=== PATIENT | female | born 2000 | race Hispanic/Latino ===

== ENCOUNTER 2023-03-21 14:50 | Outpatient (CLI) | payer OTHER | END 2023-03-21 14:51 | disposition home or self-care (01) | LOC: BICRAD 14:50 | PROVIDERS: ATTEND Student in an Organized Health Care Education/Training Program | DX: S69.91XA Unspecified injury of right wrist, hand and finger(s), initial encounter (principal) ==

== ENCOUNTER 2024-02-07 00:09 | Emergency (ER) | payer OTHER ==
[2024-02-07] MEDS ORDERED: Ibuprofen 800 MG TAB ONE (01:28)
[2024-02-07] MEDS ORDERED: Acetaminophen 500 MG TAB ONE (01:41)
== END 2024-02-07 01:48 | disposition home or self-care (01) ==
LOC: ERS 00:09
DX: T63.301A Toxic effect of unspecified spider venom, accidental (unintentional), initial encounter (principal)
CPT/HCPCS: 99282

== ENCOUNTER 2024-02-22 08:47 | Emergency (ER) | payer OTHER ==
[2024-02-22] MEDS ORDERED: Ketorolac Tromethamine 30 MG (1 mL) VIAL ONE (09:21)
[2024-02-22] MEDS ORDERED: Cyclobenzaprine 10 MG TAB ONE (09:22)
== END 2024-02-22 09:36 | disposition home or self-care (01) ==
LOC: ERS 08:47
DX: S39.012A Strain of muscle, fascia and tendon of lower back, initial encounter (principal); V49.60XA Unspecified car occupant injured in collision with unspecified motor vehicles in traffic accident, initial encounter
CPT/HCPCS: 96372; 99283; J1885

== ENCOUNTER 2024-05-02 08:41 | Emergency (ER) | payer OTHER ==
[2024-05-02] MEDS ORDERED: Dexamethasone 4 MG TAB ONE (09:25)
[2024-05-02 10:32] LABS: BHCG - Serum Negative (NEGATIVE); Pregs Control Background? CLEAR/WHITE (CLR/WHITE); Pregs Control Bar Appear? YES (CONTROL BAR)
== END 2024-05-02 10:38 | disposition home or self-care (01) ==
LOC: ERS 08:41
DX: K04.7 Periapical abscess without sinus (principal)
CPT/HCPCS: 36415; 84703; 99282; J8540

== ENCOUNTER 2024-05-19 07:55 | Emergency (ER) | payer OTHER ==
[2024-05-19] MEDS ORDERED: Dexamethasone 10 MG/ML VIAL ONE (08:25)
== END 2024-05-19 09:06 | disposition home or self-care (01) ==
LOC: ERS 07:55
DX: J02.9 Acute pharyngitis, unspecified (principal); R59.1 Generalized enlarged lymph nodes
CPT/HCPCS: 87081; 87430; 99283; J1100